=== PATIENT | female | born 1965 | race Caucasian/White ===

== ENCOUNTER 2016-04-24 10:10 | Emergency (ER) | payer BC ==
[~2016-04-24] VITALS: Ht 177.8 cm; Wt 97.9 kg
[~2016-04-24 10:10] MED LIST: COUM10TA PO; WARF7.5 PO
[2016-04-24 10:33] VITALS: BP 136/88; PULSE 86; RESP 16; TEMP 98.5; O2SAT 97
[2016-04-24] MEDS ORDERED: SODIUM CHLORIDE 0.9% FLUSH 5 ML FLUSH IVF PRN (10:45)
[2016-04-24 10:52] LABS: BLOOD, URINE TRACE (NEG); GLUCOSE,URINE NEG (NEG); KETONE, URINE NEG (NEG); NITRITE,URINE NEG (NEG); PH, URINE 6.5 (5.0-8.5)
[2016-04-24 10:53] LABS: METHOD OF COLLECTION CLEAN CATCH; URINE COLOR STRAW (YELLW/STRAW)
[2016-04-24 10:57] LABS: COMMENT (UR) CULT NOT INDICATED; CULTURE IF INDICATED CULT NOT INDICATED; RBC, URINE 0-3 /hpf (0-3); SQUAMOUS EPITHELIAL CELL URINE 0-5 /hpf (0-5)
[2016-04-24 11:15] LABS: AUTOMATED NEUTROPHIL # 6.7 TH/MM3 (1.8-7.7); BASOPHIL # 0.2 TH/MM3 (0-0.2); BASOPHIL % 2.1 % (0.0-2.0); EOSINOPHIL # 0.2 TH/MM3 (0-0.4); EOSINOPHIL % 1.8 % (0.0-4.0); HEMATOCRIT 43.9 % (35.0-46.0); LYMPH % 16.1 % (9.0-44.0); LYMPHOCYTE # 1.5 TH/MM3 (1.0-4.8); MEAN CELL VOLUME 83.8 FL (80.0-100.0); MEAN CORPUSCULAR HEMOGLOBIN 27.1 PG (27.0-34.0); MEAN CORPUSCULAR HGB CONC 32.4 % (32.0-36.0); MONO % 8.2 % (0.0-8.0); NEUT % 71.8 % (16.0-70.0); PLATELET COUNT 208 TH/MM3 (150-450); RED BLOOD COUNT 5.24 MIL/MM3 (4.00-5.30); RED CELL DISTRIBUTION WIDTH 13.8 % (11.6-17.2); WHITE BLOOD COUNT 9.4 TH/MM3 (4.0-11.0)
[2016-04-24 11:18] LABS: HEMO FLAGS DIFF FINAL
[2016-04-24 11:24] LABS: CHLORIDE 104 MEQ/L (98-107); SODIUM (NA) 141 MEQ/L (136-145)
[2016-04-24 11:27] LABS: ANION GAP 10 MEQ/L (5-15); BICARBONATE 27.2 MEQ/L (21.0-32.0); BLOOD UREA NITROGEN 11 MG/DL (7-18)
[2016-04-24 11:30] VITALS: BP 133/72; PULSE 78; RESP 16; O2SAT 95
[2016-04-24 11:30] LABS: ALT (GPT) 17 U/L (10-53); AST (GOT) 11 U/L (15-37); GLOMERULAR FILTRATION RATE 95 ML/MIN (>89)
[2016-04-24 11:32] LABS: TOTAL BILIRUBIN ADULT 0.5 MG/DL (0.2-1.0)
[2016-04-24 11:33] LABS: ALKALINE PHOSPHATASE 57 U/L (45-117)
[2016-04-24] MEDS ORDERED: IOHEXOL 350 MG/ML 10 ML VIAL (for RAD DIAG) IV ONE (11:44)
--- NOTE | 2016-04-24 11:51 | PD ---
HPI Chief Complaint: Abdominal Pain Time Seen by Provider: 11:01 Travel History International Travel<30 days: No Contact w/Intl Traveler<30days: No Traveled to known affect area: No History of Present Illness HPI 50 year-old woman who presents to the emergency department complaining of abdominal pain started last night about 8 PM, moderate in severity. Pains in the left lower quadrant. Feels similar to diverticulitis before. She had multiple episodes diverticulitis and then underwent a sigmoidectomy [place] [address] Amado. Since in she's only had one recurrent episode of diverticulitis. She otherwise has been feeling well. No nausea or vomiting. Bowel movements been unchanged. No urinary symptoms. History Past Medical History Influenza Vaccination: No PNEUMOCCOCAL Vaccine (Year): 2 LMP: no more menses Menopausal: Yes Social History Alcohol Use: Yes (occ) Tobacco Use: No (former) Allergies-Medications (Allergen,Severity, Reaction): Coded Allergies: Codeine (Verified Allergy, Severe, Itching, 04/24/16) COPIED FROM ADVERSE REACTION Morphine (Verified Allergy, Severe, Itching, 04/24/16) Reported Meds & Prescriptions Reported Meds & Active Scripts Active Reported Coumadin (Warfarin Sodium) 10 Mg Tab 10 Mg PO DIRECTED TAKES VERY OTHER DAY Coumadin (Warfarin Sodium) 7.5 Mg Tab 7.5 Mg PO DIRECTED TAKES EVERY OTHER DAY Physical Exam Narrative GENERAL: Well-appearing 50 year-old woman, no acute distress. SKIN: Warm and dry. HEAD: Atraumatic. Normocephalic. CARDIOVASCULAR: Regular rate and rhythm. No murmur appreciated. RESPIRATORY: No accessory muscle use. Clear to auscultation. Breath sounds equal bilaterally. GASTROINTESTINAL: Abdomen is flat and soft. Minimal left four-quadrant tenderness to palpation. No rebound or guarding. MUSCULOSKELETAL: No obvious deformities. No edema. NEUROLOGICAL: Awake and alert. No obvious cranial nerve deficits. Motor grossly within normal limits. Normal speech. PSYCHIATRIC: Appropriate mood and affect; insight and judgment normal. Data Data Last Documented VS Vital Signs Date Time Temp Pulse Resp B/P Pulse Ox O2 Delivery O2 Flow Rate FiO2 04/24/16 11:30 78 16 133/72 95 Room Air 04/24/16 10:33 98.5 Orders Urinalysis - C+S If Indicated (04/24/16 10:27) Complete Blood Count With Diff (04/24/16 10:43) Comprehensive Metabolic Panel (04/24/16 10:43) Iv Access Insert/Monitor (04/24/16 10:43) NPO (04/24/16 10:43) Sodium Chloride 0.9% Flush (Ns Flush) (04/24/16 10:45) Ct Abd/Pel W Iv Contrast(Rout) (04/24/16 ) Iohexol 350 Inj (Omnipaque 350 Inj) (04/24/16 11:44) Labs Laboratory Tests Test 04/24/16 04/24/16 10:45 11:10 Urine Collection Type CLEAN CATCH Urine Color STRAW Urine Turbidity CLEAR Urine pH 6.5 Urine Specific [place] 1.005 Urine Protein NEG mg/dL Urine Glucose (UA) NEG mg/dL Urine Ketones NEG mg/dL Urine Occult Blood TRACE Urine Nitrite NEG Urine Bilirubin NEG Urine Leukocyte Esterase NEG Urine RBC 0-3 /hpf Urine Squamous Epithelial 0-5 /hpf Cells Urine Amorphous Sediment FEW Microscopic Urinalysis Comment CULT NOT INDICATED Urine Collection Time 1045 White Blood Count 9.4 TH/MM3 Red Blood Count 5.24 MIL/MM3 Hemoglobin 14.2 GM/DL Hematocrit 43.9 % Mean Corpuscular Volume 83.8 FL Mean Corpuscular Hemoglobin 27.1 PG Mean Corpuscular Hemoglobin 32.4 % Concent Red Cell Distribution Width 13.8 % Platelet Count 208 TH/MM3 Mean Platelet Volume 9.9 FL Neutrophils (%) (Auto) 71.8 % Lymphocytes (%) (Auto) 16.1 % Monocytes (%) (Auto) 8.2 % Eosinophils (%) (Auto) 1.8 % Basophils (%) (Auto) 2.1 % Neutrophils # (Auto) 6.7 TH/MM3 Lymphocytes # (Auto) 1.5 TH/MM3 Monocytes # (Auto) 0.8 TH/MM3 Eosinophils # (Auto) 0.2 TH/MM3 Basophils # (Auto) 0.2 TH/MM3 CBC Comment DIFF FINAL Differential Comment Sodium Level 141 MEQ/L Potassium Level 4.0 MEQ/L Chloride Level 104 MEQ/L Carbon Dioxide Level 27.2 MEQ/L Anion Gap 10 MEQ/L Blood Urea Nitrogen 11 MG/DL Creatinine 0.66 MG/DL Estimat Glomerular Filtration 95 ML/MIN Rate Random Glucose 95 MG/DL Calcium Level 8.1 MG/DL Total Bilirubin 0.5 MG/DL Aspartate Amino Transf 11 U/L (AST/SGOT) Alanine Aminotransferase 17 U/L (ALT/SGPT) Alkaline Phosphatase 57 U/L Total Protein 7.4 GM/DL Albumin 3.5 GM/DL [facility] Medical Decision Making Medical Screen Exam Complete: Yes Emergency Medical Condition: Yes Interpretation(s) LABS: CBC is unremarkable. CMP is unremarkable UA is unremarkable Differential Diagnosis Diverticulitis, colitis, abscess, perforation, other Narrative Course Medical decision making 50 year-old woman presents to the emergency department with symptoms suggestive diverticulitis. History of the same. Previous colectomy for diverticulitis in 2011. Only one previous episode since then. Looks well. Given her surgical history, will check CT to ensure is no evidence of complication from her diverticulitis or other etiology may making diverticulitis. Likely supportive treatment antibiotics and close outpatient follow-up. FINAL: CT suggest diverticulitis, complicated. We'll give antibiotics, close outpatient follow-up with Dr. Amado. Diagnosis Primary Impression: Acute diverticulitis Additional Instructions: Follow-up with Dr. Amado this week. Take antibiotics as prescribed. Return immediately to the emergency department for any worsening pain, fevers, or any other new or worsening symptoms. Med/Other Pt SpecificInfo: Prescription(s) given Scripts Metronidazole (Flagyl)500 Mg [id number] Mg PO TID 10 Days Ref 0 Prov:Bk Cooley MD 04/24/16 Ciprofloxacin (Cipro)500 Mg [id number] Mg PO BID 10 Days Prov:Bk Cooley MD 04/24/16 Disposition: 01 DISCHARGE HOME Condition: Stable Bk Cooley MD Apr 24, 2016 11:51
--- NOTE | 2016-04-24 12:19 | RADHPO ---
EXAM DATE/TIME: 04/24/2016 11:37 [place] COMPARISON: No previous studies available for comparison. INDICATIONS : Left lower abdomen pain since last night. IV CONTRAST: 90 cc Omnipaque 350 (iohexol) IV ORAL CONTRAST: No oral contrast ingested. RADIATION DOSE: 20.64 CTDIvol (mGy) MEDICAL HISTORY : Diverticulitis. Renal calculi. SURGICAL HISTORY : sigmoidectomy ENCOUNTER: Initial ACUITY: 1 day PAIN SCALE: 9/10 LOCATION: Left lower quadrant TECHNIQUE: Volumetric scanning of the abdomen and pelvis was performed. Using automated exposure control and ad justment of the mA and/or kV according to patient size, radiation dose was kept as low as reasonably achievable to obtain optimal diagnostic quality images. FINDINGS: LOWER LUNGS: The visualized lower lungs are clear. LIVER: Decreased attenuation without lesion. There is no dilation of the biliary tree. No calcified gallst ones. SPLEEN: Normal size without lesion. PANCREAS: Within normal limits. KIDNEYS: Normal in size and shape. There is no mass or hydronephrosis. There is a nonobstructive calculus low er pole left kidney again seen measuring 6-7 mm. ADRENAL GLANDS: Within normal limits. VASCULAR: There is no aortic aneurysm. BOWEL/MESENTERY: There is wall thickening of sigmoid colon with adjacent inflammatory changes. There is some adjacent diverticula. ABDOMINAL WALL: Within normal limits. RETROPERITONEUM: There is no lymphadenopathy. BLADDER: No wall thickening or mass. REPRODUCTIVE: Small amount of pelvic free fluid. INGUINAL: There is no lymphadenopathy or hernia. MUSCULOSKELETAL: Within normal limits for patient age. CONCLUSION: 1. Wall thickening and inflammatory changes involving the sigmoid colon could be related to colitis o r diverticulitis. No perforation or abscess. 2. Small amount of pelvic free fluid. 3. Hepatic steatosis and nonobstructing left renal calculus. Oli Hendrickson MD on April 24, 2016 at 12:13 Board Certified Radiologist. This report was verified electronically.
[2016-04-24] MEDS ORDERED: CIPR-9 PO (12:36)
[2016-04-24] MEDS ORDERED: METR-1 PO (12:36)
[2016-04-24] MEDS ORDERED: CIPROFLOXACIN 500 MG TAB PO ONE (12:45)
[2016-04-24] MEDS ORDERED: metroNIDAZOLE 500 MG TAB PO ONE (12:45)
[2016-04-24 12:59] VITALS: BP 134/57
== END 2016-04-24 13:01 | disposition home or self-care (01) ==
LOC: PHED 10:10
DX: K57.92 Diverticulitis of intestine, part unspecified, without perforation or abscess without bleeding (principal)
CPT/HCPCS: 74177; 80053; 81001; 85025; 99284; Q9967